=== PATIENT | male | born 1955 | race Caucasian/White ===

== ENCOUNTER 2019-02-22 13:45 | Emergency (ER) | payer OTHER ==
[2019-02-22] MEDS: LIDOCAINE 1% (MPF) 5 ML VIAL INJ (15:08)
[2019-02-22] MEDS: CEFTRIAXONE 1 GM INJ IM (15:08)
== END 2019-02-22 15:21 | disposition home or self-care (01) ==
LOC: FTE 13:45
DX: E11.621 Type 2 diabetes mellitus with foot ulcer (principal); L97.529 Non-pressure chronic ulcer of other part of left foot with unspecified severity
CPT/HCPCS: 96372; 99284-25